=== PATIENT | male | born 1990 | race Two or more races ===

== ENCOUNTER 2017-02-19 20:09 | Inpatient (IN) | payer SELFPAY ==
[~2017-02-19] VITALS: Ht 167.6 cm; Wt 87.3 kg
[2017-02-20] MEDS ORDERED: Alum-Mag Hydrox-Simeth 30 mL Suspension PO PRN (02:30)
[2017-02-20] MEDS ORDERED: Magnesium Hydroxide 10 mL Oral Concentration PO PRN (02:30)
[2017-02-20] MEDS ORDERED: Benzocaine-Menthol Lozenge 2/Pkg PO PRN (02:30)
--- NOTE | 2017-02-20 02:50 | NUR ---
Nursing Admit Note. Patient arrival at 2150 from [facility] via ambulance with hospital security and mother present. Mother was provided access to [place] for a place to stay. Pt BRIGID as danger to self/gravely disabled. History of dropping out of college two years earlier with noted decline in concentration and change in mentation. Reported to respond to internal stimuli, and fixate on turning a light switch on and off for hours and to have periods of very poor hygiene. Pt also noted to disappear for days at a time. Reportedly patient disappeared three weeks earlier from [facility], his place of residence aunts [place]. Pt has travelled across the country and was stopped at the [place] r/t no pass port. Pt was listed as missing from [place] and family was notified. Mother has flown out to take patient home after stabilization for mental health concerns. Pt presents pleasant and cooperative, flat, withdrawn, thought process is slow and confused with possible thought blocking. Pt unable to describe proceeding events leading up to this BRIGID. Pt has never been under psychiatric treatment, denies anxiety, depression, Si/Hi, or A/V hallucinations. Mothers name:Daniel Sundaymello # [phone]. Pt consumed snack and went directly to sleep after intake assessment.
[2017-02-20] MEDS ORDERED: OLANZapine Zydis ODT 5 mg Tablet PO PRN (09:45)
--- NOTE | 2017-02-20 12:43 | HP ---
[address] [address] HISTORY AND PHYSICAL PATIENT: ZOË BASURTO : 1990 MR#: [id number] ADMIT: 02/19/2017 JOB ID: [id number] IDENTIFICATION OF PATIENT: The patient is a 26-year-old male admitted under BRIGID status with transfer from [facility]. The patient reportedly was brought into the emergency department with concerns of grave disability and danger to self. The patient reportedly had a history of recently dropping out of college in the state of [place] and allegedly had a plan of eventually moving to [facility] but lost his passport. He later elected to travel to [place] and evidently was stopped at the border and had significant concern of mentation at that time. CHIEF COMPLAINT: "I don't want to go back to [place]. I am pretty sure my mother brought my uncles to make sure that I do." This per patient report. HISTORY OF PRESENT ILLNESS: As stated above the patient is a 26-year-old male who reportedly was detained through [facility] with concern of grave disability and danger to self. The patient reportedly identified that he evidently moved to the [place] at the age of [age] from [place]. He reports that he eventually graduated from high school in a suburb north of [place] and later attended general education courses through [employer] and [employer]. He indicated that he had no degree emphasis. He reports that he has been working at local [employer] and other [employer] and actually stored up money. He reports that he did move out of the home environment and was living with an aunt for approximately three months and during that process applied for his passport but believes that it was stolen. He reports that he elected to travel to [place] and began anew, stating that he just needed to get some distance between he and his family. He reports that recently he was attempting to cross the border and was stopped due to absence of passport. By report there was concern about the patient's mentation with possible responding to internal stimulus. He denies any evidence of hallucinations, delusions. He reportedly identified that he believes that his passport was stolen but gave no specific cause or reasoning. Other history will be obtained through the family unit. Calls will be placed with mother via the hospice case manager. PAST MEDICAL HISTORY: Substantial for no reported allergies to medications. Medications of current include none. He reportedly identified no ongoing medical care. Other history was reviewed through the ER report at [facility]. I agree with findings. PAST PSYCHIATRIC HISTORY: Essentially none. SOCIAL HISTORY: As noted above. He indicates that he is not a smoker and drinker, and denies any substance use. He indicated that he has one sister who graduated from high school recently and that his mother and father reside in [facility] [place] [facility]. He reports that he does have eventual goals of returning back to [place], indicated that he stayed at the [employer]. He indicates that he does not want to return to the [facility] per family report. FAMILY HISTORY: Unknown. DEVELOPMENTAL HISTORY: As noted above. MENTAL STATUS EXAMINATION: General appearance: The patient was cooperative, polite. He appeared to be sincere in his presentation. There is some concern of anxiety with noted restlessness and some delayed responses. His speech was otherwise of normal tone, frequency, and volume. His mood was anxious. His affect was congruent. His thought process showed no evidence of racing thoughts, flight of ideas, loose or disconnected thinking. His thought content: He denied any evidence of current suicidal, homicidal ideation. He denied any evidence of active hallucinations, delusions. He was alert, oriented to person, place, time, situation. Attention and concentration intact. 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 Insight and judgment are fair. PHYSICAL EXAMINATION: Vital signs of current are unlisted. IMPRESSION: [place] I: 1. 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 2. Rule out psychosis not otherwise specified. [place] II: Deferred. [place] III: None. [place] IV: Stressors are noted for transition of life, difficulty with primary support system. [place] V: Global Assessment of Functioning of current 35. PLAN: 1.Recommendations for no prolongation of hospitalization. I do not support a petition for a 14 day order and expect the patient to be released to his own provision with [facility]. 2.At this time I would not recommend any formal medication but the administration of Vistaril 50 mg q.4 h. p.r.n. and possible usage of Zyprexa Zydis 10 mg q.6 p.r.n. for agitation if noted. MTDD
--- NOTE | 2017-02-20 13:18 | NUR ---
Nursing Note [id number] Behavior S/O: Pt has good appetite. Conversation clear & organized & very superficial. Pt staying in room except for meals & to shower. Pt is quietly sitting on bed. Pleasant & cooperative with cares. Pt has declined to take medications prior to court. A: Pt isolative & has difficulty socializing with others. P: Provide supportive environment. Monitor medications & effects.
[2017-02-20] MEDS ORDERED: OLANZapine Zydis ODT 5 mg Tablet PO SCH (21:00)
--- NOTE | 2017-02-20 22:57 | NUR ---
nursing: Pt has been out in the milieu intermittently with minimal interaction. He is logical and linear but guarded. His mother was here and he made minimal eye contact with her. He is determined to not go home with her. She is determined not to leave without him.She says they have his passport and that she would give it to him and he could go to stay with some of her family in [place]. She describes him prowling the house at night, talking to unseen others. He tries to tell he 'I'm safe. I get around pretty good. 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
--- NOTE | 2017-02-21 05:06 | NUR ---
nursing, nights, 11-7 s/o- has appeared to sleep after 2114 during q 15 minute assessments. a- no apparent distress. p- monitor behavior/emotional state, quality, times and amount of sleep, use and effect of medication. lauren
[2017-02-21 10:07] VITALS: BP 109/72; PULSE 88; RESP 14
--- NOTE | 2017-02-21 13:23 | NUR ---
Nursing Note [id number] Behavior S/O: Pt has good appetite. Pt has agreed to stay in unit voluntarily. Papers signed by pt. Pt stays in room most of the time except for meals. Pleasant & cooperative. Conversation tracking is clear with normal rate & rhythm. Minimal conversation with staff & peers. Poor eye contact. A: Pt is not able to engage in unit activities d/t social phobia. P: Provide supportive environment. Monitor medication & effects.
--- NOTE | 2017-02-21 14:55 | PCM.PNPSY ---
Subjective Date of Service Feb 21, 2017 Subjective I spent 30 minutes both reviewing treatment plan with our clinical team, interviewing the patient and providing supportive/educational psychotherapy. I spent more than 50% of the time counseling the patient. I reviewed the treatment plan with the him and discussed options available including the potential risks, benefits and side effects. Kyle reports a slight improvement in thought organization and mood stability. Staff reports that he has been isolating and participating poorly in one-to-one unit and group activities. He slept 9 hours and denies depression manic or psychotic symptoms review. At this point he is declining offers of medication. Mental Status Exam Vital Signs Kyle is demonstrating poor insight judgment and impulse control. Appearance: Unkept Attitude: Pleasant, Cooperative Behavior: Other (isolative) Affect: Flat (she got requested) Mood: Anxious Thought Process/Associations: Goal Directed, Other (disorganized) Speech Production: Soft Speech Rate: Lags/Latency Speech Articulation: Normal Consciousness: Somnolent Orientation: Person, Place, Date Memory: Grossly Intact Estimate Intellectual Function: Average Attention/Concentration & Cogn: Impaired Insight: Limited Judgement: Limited Mental Health Plan Kyle is a 26-year-old male who was detained through [facility] Emergency Department for grave disability and danger to self. He reports that he moved to the [place] at the age of [age] from [place]. He graduated from high school in a suburb north of [facility]. He has been working at [employer] and other [employer] and actually stored up money. He reports he elected to travel to [place] and begin anew, stating that he just needed to get some distance between he and his family. He reports that recently he was attempting to cross the border and was stopped due to absence of passport. By report there was concern about the patient's mentation with possible responding to internal stimulus. He denies any evidence of hallucinations, delusions. During my evaluation today he was calm and pleasant. He was unable to Relate a coherent history relating to reasons for traveling from [place] to [place]. Although he did not appear to be responding to internal stimuli his thought processing Was impaired with significant poverty of thought and latency. We were able to contact his mother who drove from [place] to come bring him home. Our sample case porter GALILEA is scheduled to meet with his mother tomorrow to discuss Treatment and transitioning back to an outpatient setting. [place] 1. 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 2. Rule out psychosis not otherwise specified. [place] II: Deferred. [place] III: None. [place] IV: Stressors are noted for transition of life, difficulty with primary support system. [place] V: Global Assessment of Functioning of current 35. Medications Treatments Patient is being provided with a high degree of safety through our unit structure and active adult engagement provided by our mental health professionals, mental health technicians, psychiatric nurses and myself. We are focusing on developing improved coping skills and identifying stressors that may have led to current episode. We will attempt to: * Integrate into therapeutic groups, milieu and individual therapy. * Maintain in a closely monitored and structured unit * Provide low-stimulation environment * Obtain collateral data to assist in treatment planning * Assess degree of lability of affect and impulse control * Complete safety plan * Decrease frequency of relapse and need for re-hospitalization * Establish a consistent sleep pattern * Medication effective in stabilization of mood and/or thought process * Reduce the risk of imminent harm to self and/or others by providing a safe environment * Tolerates medication without side effects Patient will be on the following psychiatric medications: None Patient's legal status Voluntary Anticipated number of hospital days to achieve above goals: Unknown Disposition: Patient's mother to come in for a family meeting tomorrow 2016 to gain increased history and to discuss different outpatient treatment options. Los Krishnamurthy MD Feb 21, 2017 14:55 Los Krishnamurthy MD Feb 21, 2017 14:55
--- NOTE | 2017-02-21 18:16 | NUR ---
[facility] Day Shift Pt maintained behavioral control throughout the shift. Pt affect appears flat, artificially bright when engaged by staff and peers. Pt spends most of the shift resting in his room, only entering the dining room to attend meals/snack times. Pt is appropriate with staff and peers when engaged, but is not social. Pt did not engage in any unit activities throughout the shift. Pt takes an abnormally long time to shower. Pt attended all meals and ate approx 100% of all meals.
--- NOTE | 2017-02-21 20:04 | NUR ---
Practice Advisor/Counselor: S: "It's okay to talk to my mom." O: Patient denies S/I and H/I. He also denies auditory and visual hallucinations. Depression is 0/10 and anxiety is 0/10. When asked his mood, patient stated, "I feel good." This show card writer spoke with patient's mother, Smita. This show card writer will have a family meeting tomorrow at 1:00pm with patient and patient's mother. A: Patient is cooperative, pleasant, unkept, flat affect, anxious, limited insight, limited judgment. P: Follow the care plan, coordinate with out-patient providers.
--- NOTE | 2017-02-21 22:10 | NUR ---
[id number]. nurs. S/O: Pt out on unit, some questionably appropriate extensive smiling behaviour, denying any concerns and talking of his plans to stay in [place] for a while working before travelling further [place] mentioned. Pt has family mtg on unit tomorrow. Pt not seeking interaction with others some time out on unit and in grp rm. P:MOSESP
--- NOTE | 2017-02-22 05:33 | NUR ---
nursing, nights, 11-7 s/o- has appeared to sleep after 2244 during q 15 minute assessments. a- no apparent distress. p- monitor behavior/emotional state, quality, times and amount of sleep, use and effect of medication. lauren
[2017-02-22 11:38] VITALS: BP 112/72; PULSE 89; RESP 16
--- NOTE | 2017-02-22 15:06 | NUR ---
Nursing Note [id number] Behavior S/O: Pt out of room for meals. Pt stayed in room most of the day. Pleasant & cooperative with cares. Pt talking & laughing by self with unseen person(s). VS stable. Good appetite. A: Pt appears to be responding to internal stimuli. P: Provide supportive environment. Monitor medications & effects.
--- NOTE | 2017-02-22 21:04 | NUR ---
Pt is pleasant and cooperative with staff. Appropriate with peers but interacts minimally. Pt spent much of the day isolated in his room. Pt visited with mother and CM to discuss discharge planning. Pt participated in evening meeting, stated that he was glad to have talked to the doctor and rated his mood at a 10/10. Throughout the day, pt was visibly and pleasantly responding to internal stimuli. Maintained Q15 checks for safety as directed.
--- NOTE | 2017-02-23 06:25 | NUR ---
Nursing Note Registered Nurse Renal 7pm to 7am Received pt in bed at start of shift. Pt was pleasant and cooperative but vague and evasive when attempting to assess symptoms. Pt denied hearing voices or having disturbance of thought. When asked why he believes he was admitted to the unit he said because he had lost his pass port. Pt refused [facility] stating I have never had to take medication except for over the counter and I am not having any problems that I need medication for. Pt slept through the night. Monitored pt. q 15 minute checks for safety, location and accountability
[2017-02-23 13:30] VITALS: BP 114/73; PULSE 88; RESP 16
--- NOTE | 2017-02-23 17:43 | PCM.PNPSY ---
Subjective Date of Service Feb 22, 2017 Subjective Approximately 30 minutes spent with interview. The patient stated initially that he wished to leave. He had no plan as to where he would go other than to go to [facility] work [place]. 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 He had no response when asked how he would get to [facility] without a passport. 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 He stated his goals were to "settle down, find work, and jail." The patient had not been prescribed medication but as he was exhibiting evidence of a thought disorder he was advised try olanzapine this evening. The patient was agreeable to this plan. Sleep: 7.25 hours plus Appetite: "I tried to eat and walk around." Suicidal and homicidal ideation: Denies Auditory hallucinations: Denies Visual hallucinations: Denies Other Psychotic Symptoms: Poverty of speech, thought disorganization. He denies thought control or thought withdrawal, thought insertion, or racing thoughts. Anxiety: Denies Depression: Denies Mental Status Exam Vital Signs Vital Signs Date Time Temp Pulse Resp B/P Pulse Ox O2 Delivery O2 Flow Rate FiO2 02/22/17 11:38 36.4 89 16 112/72 Appearance: Unkept Attitude: Pleasant, Cooperative Behavior: Other (isolative) Affect: Flat (laughing to self, maniacal expression at times.) Mood: Anxious Thought Process/Associations: Goal Directed, Other (disorganized) Speech Production: Soft Speech Rate: Lags/Latency Speech Articulation: Normal Thought Content: Other (responding to internal stimuli) Danger to Self/Suicidal Ideati: None Danger to Others: None Delusions: Other Hallucinations: Auditory (Denies), Visual (Denies) Consciousness: Alert Orientation: Person, Place, Date Memory: Grossly Intact Estimate Intellectual Function: Average Attention/Concentration & Cogn: Impaired Insight: Limited Judgement: Limited Mental Health Plan Kyle is a 26-year-old male who was detained through [facility] Emergency Department for grave disability and danger to self. He reports that he moved to the [place] at the age of [age] from [place]. He graduated from high school in a suburb north of [facility]. He has been working at [employer] and other [employer] and actually stored up money. He reports he elected to travel to [place] and [facility] anew, stating that he just needed to get some distance between he and his family. He reports that recently he was attempting to cross the border and was stopped due to absence of passport. By report there was concern about the patient's mentation with possible responding to internal stimulus. He denies any evidence of hallucinations, delusions. During interview today he continued to be unable to relate why he planned to go to [place] or [facility]. At times he appeared to be responding to internal stimuli, talking and laughing to himself. He also demonstrates latency and poverty of speech. The patient had a family meeting where his mother expressed concern about his mental state and how he would return to [place] or find housing locally. [place] AXIS I 1. Psychosis not otherwise specified. [place] II: Deferred. [place] III: None. [place] IV: Stressors are noted for transition of life, difficulty with primary support system. [place] V: Global Assessment of Functioning of current 30. Medications Treatments 1. The patient is admitted to the inpatient unit and will be provided a safe and secure environment. 2. The patient is denying current active suicidality and is not in need of a one-to-one at this time. He is agreeing to notify us should he have any acute suicidal or homicidal thoughts. 3. The patient is encouraged to participate with group and milieu activities. 4. The patient will be seen by the treatment team on a daily basis to assess symptoms, side effects and response to treatment. 5. The patient will be started on olanzapine 5 mg nightly for psychosis 6. Anticipated length of stay is 3-5 days. Walt Mcdaniel MD Feb 22, 2017 18:59
--- NOTE | 2017-02-23 17:47 | PCM.PNPSY ---
Subjective Date of Service Feb 23, 2017 Subjective The patient did not take olanzapine last night stating that he did not need a sleeping pill. We discussed that the medication was to assist his mentation and his ability to think more clearly. The patient exhibited significant latency but eventually acknowledged that he had difficulties with the same. When asked about previous behavior of laughing and talking to himself he was unable to clarify whether he is experiencing auditory hallucinations or internal dialogue. Sleep: 7.5 hours Appetite: Good" Suicidal and homicidal ideation: Denies Auditory hallucinations: Denies Visual hallucinations: Denies Other Psychotic Symptoms: Poverty of speech, latency. Anxiety: 0/10 Depression: 0/10 Mental Status Exam Vital Signs Vital Signs Date Time Temp Pulse Resp B/P Pulse Ox O2 Delivery O2 Flow Rate FiO2 02/23/17 13:30 36.4 88 16 114/73 Appearance: Unkept Attitude: Pleasant, Cooperative Behavior: Other (isolative) Affect: Flat (laughing to self, maniacal expression at times.) Mood: Anxious Thought Process/Associations: Goal Directed, Other (disorganized) Speech Production: Soft Speech Rate: Lags/Latency Speech Articulation: Normal Thought Content: Other (responding to internal stimuli) Danger to Self/Suicidal Ideati: None Danger to Others: None Delusions: Other Hallucinations: Auditory (Denies), Visual (Denies) Consciousness: Alert Orientation: Person, Place, Date Memory: Grossly Intact Estimate Intellectual Function: Average Attention/Concentration & Cogn: Impaired Insight: Limited Judgement: Limited Mental Health Plan Kyle is a 26-year-old male who was detained through [facility] Emergency Department for grave disability and danger to self. He reports that he moved to the [place] at the age of [age] from [place]. He graduated from high school in a suburb north [facility]. He has been working at [employer] and other [employer] and actually stored up money. He reports he elected to travel to [place] and [facility] anew, stating that he just needed to get some distance between he and his family. He reports that recently he was attempting to cross the border and was stopped due to absence of passport. By report there was concern about the patient's mentation with possible responding to internal stimulus. He denies any evidence of hallucinations, delusions. During interview today he continued to be unable to relate why he planned to go to [place] or [facility]. At times he appeared on the unit to be continuing to respond to internal stimuli, talking and laughing to himself. He also again demonstrates latency and poverty of speech. The patient stated he would take olanzapine this evening. [place] AXIS I 1. Psychosis not otherwise specified. [place] II: Deferred. [place] III: None. [place] IV: Stressors are noted for transition of life, difficulty with primary support system. [place] V: Global Assessment of Functioning of current 30. Medications Treatments 1. The patient is admitted to the inpatient unit and will be provided a safe and secure environment. 2. The patient is denying current active suicidality and is not in need of a one-to-one at this time. He is agreeing to notify us should he have any acute suicidal or homicidal thoughts. 3. The patient is encouraged to participate with group and milieu activities. 4. The patient will be seen by the treatment team on a daily basis to assess symptoms, side effects and response to treatment. 5. The patient will be started on olanzapine 5 mg nightly for psychosis 6. Consider crisis respite for placement given his level of impairment. 7. Anticipated length of stay is 3-5 days. Walt Mcdaniel MD Feb 23, 2017 17:47
--- NOTE | 2017-02-23 18:27 | NUR ---
Nursing Dayshift: S: "My name is Tree. I am also Serge." O: Patient introducing himself this AM. Has been out in the public areas of the unit today. Interacting with staff and peers. Good appetite at meals. A: Pleasant mood. Bright affect. P: CPOC. Monitor mood and behavior.
--- NOTE | 2017-02-23 19:30 | NUR ---
Observations 0900 - 2130 Pt affect and mood was isolative, guarded, withdrawn, preoccupied and responding to internal stimuli. Pt was pleasant, polite and cooperative when approached. Pt was social with staff and peers when out of his room. Pt attended meals in [facility] and ate 100% of his meals. Pt attended community meeting and set a daily goal. Pt rated his mood 7/10, with 10 being the best. Pt was in his room most of the shift. Pt mom came to visit it appeared to be going well and it ended abruptly and his mom left. Pt took a very long shower in the afternoon. Pt was observed every 15 minutes through the shift as ordered.
--- NOTE | 2017-02-23 23:43 | NUR ---
Nursing Noc Pt had a short visit with his mother this evening before he asked her to leave. His father called but he did not talk on the phone long. He refused a phone call from his sister. Pt quiet on the unit with a pleasant smile, delayed responses. Minimal interaction with peers or staff. He appears internally preoccupied. Took scheduled HS medication without difficulty. Prior to bed he requested his "second medication". He received Zyprexa Zydis 10mg po prn at that time. Medication appears helpful he retired to his room and appears to be sleeping with no noted distress or awakening per protocol. Will continue to monitor mood, behavior, and sleep cycle through the night. Addendum: 02/24/17 at 0518 by SARAH DUBOIS RN Pt asleep by 2245 with no noted distress or awakening per protocol checks. He remains asleep at current time with over 6.5+ hours.
[2017-02-24 15:35] VITALS: BP 118/74; PULSE 69; RESP 15
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
--- NOTE | 2017-02-24 16:03 | NUR ---
Principal Data Architect/Counselor S: "I feel calm. I want to work for 3-4 months before going to [facility]." O: Patient denies any SI or HI, no AVH, no anxiety and no depression. A: Patient has kept to his room for most of the day, and has minimal interaction with staff and other patients. DMHP's have been contacted to re-evaluate patient. P:Follow care plan and coordinate with outpatient providers.
--- NOTE | 2017-02-24 17:35 | NUR ---
Observations [id number] Pt isolative to room much of the day, focused on discharge. Pt did attend all meals, eating 100%. Pt did not spend much time in common areas aside from meal times. Pt continues to appear very internally preoccupied when in common areas. Requested pt to complete safety plan and early warning signs in preparation for discharge- pt appeared to have very little insight as to why he was here, aside from stating "medication makes me sleepy, I don't like how I feel when I wake up after I take medication." He was unable to provide any early warning signs as requested aside from medication side effects. Pt good with ADL's, polite when addressed and cooperative. He was observed every 15 minutes of shift as directed.
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
--- NOTE | 2017-02-25 02:00 | NUR ---
Observations 1900 to 0700 Pt attended and participated in wrap up group. Pt did not eat a snack. Pt was mildly social with peers after wrap up group, but otherwise remained resting in bed. Pt maintained behavioral control and showed no signs of abnormal behavior. Pt appeared asleep at 2130 and has remained asleep. Pt respirations were observed when asleep. Staff completed 15 min close observations as ordered.
--- NOTE | 2017-02-25 05:04 | NUR ---
Nursing Noc Pt has remained quietly pleasant on the unit. Polite upon interaction but mostly isolative. Delayed latent response. Took scheduled medication without difficulty. He was [facility] and [facility] during the evening but had no apparent reaction to his change in status. Poor understanding and insight into his hospitalization. No behavioral problem. He has remained asleep since 2129 with no noted distress or awakening per protocol checks. Adequate sleep with over 7.5 hours.
--- NOTE | 2017-02-25 11:13 | NUR ---
day shift nursing note-Psychosis S/O-Pt. reported he slept well. He asked tag writer what time it was and came out to eat breakfast later than his peers. He does not interact with his peers and prefers to keep to himself in his room rather than watch TV out in the community room. He stated he likes to read magazines but does not come out of his room to get any. He has diverted eye contact when asked if he has any hallucinations. He denies SI, depression or anxiety. He sometimes is observed talking to himself and has no insight as to why he is here. A-Psychosis. P-Monitor for safety per protocol. Assess efficacy of meds to manage target sxs. Encourage engagement with peers.
[2017-02-25 13:00] VITALS: BP 117/77; PULSE 89; RESP 17
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
--- NOTE | 2017-02-25 15:57 | NUR ---
Payroll Associate/Counselor S/O:Patient denies any SI or HI, no AVH, no depression or anxiety. Patient recognizes that [place] may not be a viable option. A:He was in a meeting with his radiology transcriptionist but was friendly and cooperative. He has been in his room for most of the day. P: Follow care plan and coordinate with outpatient providers.
--- NOTE | 2017-02-25 16:00 | NUR ---
Obs Dayshift Pt spends most of his time in bed. Has minimal requests, calm, quiet, and isolating. Pt gets up for meals after peers have eaten and left the dining area. Pt is responding to IS, smiling and talking quietly to unseen others. Pt is polite when approached, calm, and appropriate. Good ADL's, Good meals
--- NOTE | 2017-02-25 22:29 | NUR ---
Nurses Note Evening Patient has been isolative to his room except for dinner and snacks. He has been polite upon approach. He remains medication compliant.Will maintain q 15min. checks for safety and support. Addendum: 02/25/17 at 2232 by KARYN ACEVEDO RN Amended: Links added.
[2017-02-26 11:42] VITALS: BP 115/71; PULSE 74; RESP 16
--- NOTE | 2017-02-26 12:45 | PCM.PNPSY ---
Subjective Date of Service Feb 26, 2017 Subjective The patient reports "I am good.... I feel good." He states that he feels that the olanzapine is helping for him to think more clearly. He denies having any kind of hallucinations or distracting thoughts. When asked about his plans he stated that he may want to go to [place] instead of [place] as it is a larger city with more opportunities since he is homeless. When asked about [place] and his plans to go there he stated that he thought about going to a library to learn about [place]. He had no idea about the process to actually go to a foreign country and work there. He denied that he wanted to return to [place]. He denied medication side effects. The patient could not explain why he preferred to stay in his room but did agree to go to groups today. Sleep: 8 hours Appetite: "Good... 3 meals a day with snacks twice a day" Suicidal and homicidal ideation: Denies Auditory hallucinations: Denies Visual hallucinations: Denies Other Psychotic Symptoms: Latency, poverty of speech Anxiety: "Pretty good" Depression: Denies Mental Status Exam Vital Signs Vital Signs Date Time Temp Pulse Resp B/P Pulse Ox O2 Delivery O2 Flow Rate FiO2 02/26/17 11:42 36.2 74 16 115/71 Appearance: Neat/well groomed Attitude: Pleasant, Cooperative Behavior: Other (isolative) Affect: Blunted Mood: Other ("fine") Thought Process/Associations: Goal Directed, Other (poverty of speech) Speech Production: Soft Speech Rate: Lags/Latency Speech Articulation: Normal Thought Content: Other (internal preoccupation at times) Danger to Self/Suicidal Ideati: None Danger to Others: None Delusions: Other Hallucinations: Auditory (Denies), Visual (Denies) Consciousness: Alert Orientation: Person, Place, Date Memory: Grossly Intact Estimate Intellectual Function: Average Attention/Concentration & Cogn: Impaired Insight: Limited Judgement: Limited Mental Health Plan 6Sermaritza is a 26-year-old male who was detained through [facility] Department for grave disability and danger to self. He reports that he moved to the [place] at the age of [age] from [place]. He graduated from high school in a suburb north of [facility]. He has been working at [employer] and other [employer] and actually stored up money. He reports he elected to travel to [place] and begin anew, stating that he just needed to get some distance between he and his family. He reports that recently he was attempting to cross the border and was stopped due to absence of passport. By report there was concern about the patient's mentation with possible responding to internal stimulus. He denies any evidence of hallucinations, delusions. As noted above, the patient is less fixated on going to [facility] and is actually thinking about his situation more logically and considering larger cities with more services given his homeless status. He is still unwilling to go back to [place] with family. He is still isolating, but is taking medications and cooperating with treatment. [place] AXIS I 1. Psychosis not otherwise specified. [place] II: Deferred. [place] III: None. [place] IV: Stressors are noted for transition of life, difficulty with primary support system. [place] V: Global Assessment of Functioning of current 35. Medications Treatments 1. The patient is admitted to the inpatient unit and will be provided a safe and secure environment. 2. The patient is denying current active suicidality and is not in need of a one-to-one at this time. He is agreeing to notify us should he have any acute suicidal or homicidal thoughts. 3. The patient is encouraged to participate with group and milieu activities. 4. The patient will be seen by the treatment team on a daily basis to assess symptoms, side effects and response to treatment. 5. The patient will be continued on olanzapine 5 mg nightly for psychosis, consider increasing dose if no further improvement. 6. The patient is now on a [address] on Friday. 7. Anticipated length of stay is 10-14 days. Walt Mcdaniel MD Feb 26, 2017 12:45 Walt Mcdaniel MD Feb 26, 2017 12:45
--- NOTE | 2017-02-26 16:46 | NUR ---
Obs Dayshift Pt remained in bed for my shift, getting up only for meals. Little to no engaging, only when approached and superficial w/ staff. Does not engage w/ peers. Ok w/ ADL's, Good/Ok meals
--- NOTE | 2017-02-26 18:04 | NUR ---
Nursing Dayshift: S: "Can I borrow a shaver?" O: Patient shaving this evening. Polite towards staff. Smiles on approach. Eating well at meals. A: Pleasant with staff. Isolative. P: CPOC. Monitor mood and behavior.
--- NOTE | 2017-02-26 19:16 | NUR ---
Sas Bi Developer/Counselor: S: "I'm doing pretty good." O: Patient slept 8 hours last night per staff. Patient denies S/I and H/I. He also denies auditory and visual hallucinations. He denies depression and anxiety is "pretty good"/10. When asked his mood, patient stated, "Fine." A: Patient is cooperative, blunted affect, internally preoccupied, limited insight, limited judgment. P: Follow the care plan, coordinate with out-patient providers.
--- NOTE | 2017-02-26 20:54 | NUR ---
Nursing Noc Pt isolates to room except out for snack. Pleasant and polite upon approach. No behavioral outburst. Took HS medication without difficulty. Minimal interaction with peers or staff. Will continue to monitor and provide support as needed.
--- NOTE | 2017-02-27 05:00 | NUR ---
Adequate sleep through the night with no noted distress or awakening per protocol checks. Total sleep over 8 hours.
[2017-02-27 09:10] VITALS: BP 125/66; PULSE 104; RESP 16
--- NOTE | 2017-02-27 15:16 | NUR ---
NURSE NOTE DAY Mood:"I'm fine." Denies depression, anxiety. Affect: Restricted. Behavior:Pt isolated in room most of shift. Thought Content/Process: "I want to move to [facility] to settle down." Denies SAILAJA, VH. Denies GERARDO GOEL. PRN/NURS Notes: Per mother, pt was drinking excessive amounts of water prior to admit.
--- NOTE | 2017-02-27 16:01 | NUR ---
Records Technician/Counselor: S: "I woke up on time, ate breakfast on time, and did my laundry." O: Patient slept 6.50 hours last night per staff. Patient denies S/I and H/I. He also denies auditory and visual hallucinations. He denies depression and anxiety. When asked his mood, patient stated, "Good." A: Patient is cooperative, blunted affect, isolative, limited insight, limited judgment. P: Follow the care plan, coordinate with out-patient providers.
--- NOTE | 2017-02-27 17:15 | PCM.PNPSY ---
Subjective Date of Service Feb 27, 2017 Subjective Patient reports that he was "up on time, at breakfast on time, did laundry." Declines a visit from mother as "not really much to talk about." Patient agreeable to LRO with placement in [place] Sleep: Getting good sleep Appetite: good Suicidal and homicidal ideation: denies Auditory hallucinations: denies Visual hallucinations: denies Other Psychotic Symptoms: latency improved Anxiety: 0/10 Depression: 0/10 Mental Status Exam Vital Signs Vital Signs Date Time Temp Pulse Resp B/P Pulse Ox O2 Delivery O2 Flow Rate FiO2 02/27/17 09:10 36.4 104 16 125/66 Appearance: Neat/well groomed Attitude: Pleasant, Cooperative Behavior: Other (isolative) Affect: Blunted Mood: Other ("fine") Thought Process/Associations: Goal Directed, Other (poverty of speech) Speech Production: Soft Speech Rate: Lags/Latency Speech Articulation: Normal Thought Content: Other (internal preoccupation at times) Danger to Self/Suicidal Ideati: None Danger to Others: None Delusions: Other Hallucinations: Auditory (Denies), Visual (Denies) Consciousness: Alert Orientation: Person, Place, Date Memory: Grossly Intact Estimate Intellectual Function: Average Attention/Concentration & Cogn: Impaired Insight: Limited Judgement: Limited Mental Health Plan 6Kyle is a 26-year-old male who was detained through [facility] Emergency Department for grave disability and danger to self. He reports that he moved to the [place] at the age of [age] from [place]. He graduated from high school in a [place] north of [facility]. He has been working at [employer] and other [employer] and actually stored up money. He reports he elected to travel to [place] and begin anew, stating that he just needed to get some distance between he and his family. He reports that recently he was attempting to cross the border and was stopped due to absence of passport. By report there was concern about the patient's mentation with possible responding to internal stimulus. He denies any evidence of hallucinations, delusions. The patient is open to treatment and a less restrictive order. He is still unwilling to go back to [place] with family. He is still isolating, but is taking medications and cooperating with treatment. [place] AXIS I 1. Psychosis not otherwise specified. [place] II: Deferred. [place] III: None. [place] IV: Stressors are noted for transition of life, difficulty with primary support system. [place] V: Global Assessment of Functioning of current 35. Medications Treatments 1. The patient is admitted to the inpatient unit and will be provided a safe and secure environment. 2. The patient is denying current active suicidality and is not in need of a one-to-one at this time. He is agreeing to notify us should he have any acute suicidal or homicidal thoughts. 3. The patient is encouraged to participate with group and milieu activities. 4. The patient will be seen by the treatment team on a daily basis to assess symptoms, side effects and response to treatment. 5. The patient will be continued on olanzapine 5 mg nightly for psychosis, consider increasing dose if no further improvement. 6. The patient is now on a 72hr hold with court on Friday. 7. Anticipated length of stay is 10-14 days. Walt Mcdaniel MD Feb 27, 2017 17:15 Walt Mcdaneil MD Feb 27, 2017 17:15
--- NOTE | 2017-02-27 19:37 | NUR ---
Observations 1300 - 1930 Pt affect and mood remains the same as previous shifts. isolative, guarded, withdrawn, preoccupied and responding to internal stimuli. Pt was pleasant, polite and cooperative when approached. Pt was social with staff and some peers when out of his room. Pt attended meals in D.R. and ate 100% of his meals. Pt was in his room most of the shift. Pt was observed every 15 minutes through the shift as ordered.
--- NOTE | 2017-02-27 22:24 | NUR ---
Nurses Note Evening Patient remains isolative to his room except for meals and medication. He continues to speak about leaving the country once discharged looking for a peaceful country. He remains pleasant and polite without overt signs of inner stimuli. Will maintain q 15 min. checks for safety and support. Addendum: 02/27/17 at 2229 by KARYN ACEVEDO RN Amended: Links added.
--- NOTE | 2017-02-28 00:40 | NUR ---
nursing, nights, 11-7 s/o- has appeared to sleep after 2129 during q 15 minute assessments. a- no apparent distress. p- monitor behavior/emotional state, quality, times and amount of sleep, use and effect of medication
[2017-02-28 10:45] LABS: BASOPHILS % (AUTO) 0.2 % (0-3); Mean Corpuscular Hemoglobin 27.6 pg (27.0-35.0); Mean Corpuscular Volume 84.4 fL (81-100); NEUTROPHILS % (AUTO) 49.6 % (40-74); Platelet Count 241 bil/L (150-400)
--- NOTE | 2017-02-28 14:03 | NUR ---
NURSE NOTE DAY Mood: "I'm fine." Denies depression, anxiety. Affect: Restricted. Thought Process/Content: "I'm feeling much better than when I got here." Denies AH, VH. Denies SI, HI. Behavior: Pt went to court this morning. Up for meals. Isolated in room much of shift. Pleasant and cooperative with staff.
--- NOTE | 2017-02-28 14:29 | NUR ---
Cranberry Sorter/Counselor: S: "I had my medication last night and I slept and woke up on time and had breakfast." O: Patient slept 8.5 hours last night per staff. Patient denies S/I and H/I. He also denies auditory and visual hallucinations. He denies depression and anxiety. When asked his mood, patient stated, "Good." This sign writer letterer or painter called [facility] Triage to see if they had an available bed for the patient. There are not any available beds at this time. The Triage b2b sales representative suggested a call back each morning to check for bed availability. This sign writer letterer or painter spoke with [facility] and scheduled an out-patient appointment for March 04 at 8:30am. Patient's plans upon discharge are: Stay in [place] for a little while; get a passport; get a job; go to the [place] and learn [place]; and finally move to [facility]. A: Patient is cooperative, blunted affect, isolative, limited insight, limited judgment. P: Follow the care plan, coordinate with out-patient providers. Addendum: 02/28/17 at 2118 by FLOR SINGH [facility] Upon discharge, showcase trimmer will attempt to get patient a bed at [place] [facility], . A Release of Information is in patient's chart. business support manager will request "A special needs admission bed."
--- NOTE | 2017-02-28 15:14 | PCM.PNPSY ---
Subjective Date of Service Feb 28, 2017 Subjective The patient reported that "court went good." He continues to report that he does not wish to return to [place] with his mother. His mother has expressed concern about being able to care for himself in the community. He states that the medication is helping his thinking and he was able to wake up early and take a shower on time without difficulty. He plans to get his social security card and his passport. 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 We discussed with the patient that he would like to be a good candidate for crisis respite that there are no beds. We also discussed referring the patient to a special needs admission bed he was agreeable. The patient declines further titration of medication but agrees to take it on discharge. Sleep: 8.5 hours Appetite: Good Suicidal and homicidal ideation: Denies Auditory hallucinations: Denies Visual hallucinations: Denies Other Psychotic Symptoms: Patient is noted being the day area responding to internal stimuli. Anxiety: 0/10 Depression: 0/10 Mental Status Exam Appearance: Neat/well groomed Attitude: Pleasant, Cooperative Behavior: Other (isolative) Affect: Restricted (but smiling more with better eye contact) Mood: Euthymic Thought Process/Associations: Goal Directed, Other (poverty of speech) Speech Production: Soft Speech Rate: Normal, Lags/Latency (at times) Speech Articulation: Normal Thought Content: Other (internal preoccupation at times) Danger to Self/Suicidal Ideati: None Danger to Others: None Delusions: Other Hallucinations: Auditory (Denies), Visual (Denies) Consciousness: Alert Orientation: Person, Place, Date, Situation Memory: Grossly Intact Estimate Intellectual Function: Average Basis for IQ estimate: Word use/vocabulary, Educational history Attention/Concentration & Cogn: Impaired Insight: Limited Judgement: Limited Result Diagram: 02/28/17 1004 02/28/17 1004 Mental Health Plan Clemente is a 26-year-old male who was detained through [facility] Emergency Department for grave disability and danger to self. He reports that he [place] the [place] at the age of [age] from [place]. He graduated from high school in a suburb north of [facility]. He has been working at [employer] and other [employer] and actually stored up money. He reports he elected to travel to [place] [facility], stating that he just needed to get some distance between he and his family. He reports that recently he was attempting to cross the border and was stopped due to absence of passport. By report there was concern about the patient's mentation with possible responding to internal stimulus. He denies any evidence of hallucinations, delusions. The patient agreed to a less restrictive order today with 5 additional days to allow time for crisis respite referral. The patient also needs referral to a special needs admission bed at [facility]. He is still unwilling to go back to [place] with family. He is still isolating, but is taking medications and cooperating with treatment. He is unwilling to have further titration of olanzapine. [place] AXIS I 1. 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 [place] III: None. [place] IV: Stressors are noted for transition of life, difficulty with primary support system. [place] V: Global Assessment of Functioning of current 40. Medications Treatments 1. The patient is admitted to the inpatient unit and will be provided a safe and secure environment. 2. The patient is denying current active suicidality and is not in need of a one-to-one at this time. He is agreeing to notify us should he have any acute suicidal or homicidal thoughts. 3. The patient is encouraged to participate with group and milieu activities. 4. The patient will be seen by the treatment team on a daily basis to assess symptoms, side effects and response to treatment. 5. The patient will be continued on olanzapine 5 mg nightly for psychosis, consider increasing dose if no further improvement patient currently declining. 6. The patient is on a 90 day less restrictive order with inpatient time until 03/04/2017. 7. The patient has been referred to crisis respite but there are currently no beds available. They will also be notified that he would benefit from a special needs admission bed at [facility]. 8. Given the patient's history of disorganization, the patient would benefit from a map of the [place] area in order to get from the bus to crisis triage and [facility]. 9. The patient's outpatient follow-up is scheduled for Friday at 8:30 AM on at [facility] in [place]. The patient may present Friday through Friday however. 10. Anticipated length of stay is 4 days. Walt Mcdaniel MD Feb 28, 2017 15:14
[2017-02-28 17:41] VITALS: BP 121/68; PULSE 90; RESP 16
--- NOTE | 2017-02-28 18:45 | NUR ---
[facility] Day Shift Pt maintained behavioral control throughout the shift. Pt affect appears flat, artificially bright when engaged by staff and peers. Pt spends most of the shift resting in his room, only entering the dining room to attend meals/snack times. Pt is appropriate with staff and peers when engaged, but is not social. Pt did not engage in any unit activities throughout the shift. Pt continues to take an abnormally long time to shower. Pt attended all meals and ate approx 100% of all meals.
--- NOTE | 2017-02-28 22:06 | NUR ---
Observations 1900 to 0700 Pt ate a snack. Pt is pleasant and cooperative with staff. Pt spends free time resting in bed. Pt maintained behavioral control and showed no signs of abnormal behavior. Pt appeared asleep at 2200. Pt respirations were observed when asleep. Staff completed 15 min close observations as ordered.
--- NOTE | 2017-03-01 03:08 | NUR ---
Nursing Noc Pt noted to be out in common area this evening taking medications and snacks. Refused to see his mother this shift. Presents soft spoken and denies hallucination or anxiety. Noted to be asleep at 2200 and remained asleep throughout the night. q15 minute safety checks as prescribed BHCP, monitoring mood, behavior, emotional state and sleep times.
[2017-03-01 11:34] VITALS: BP 107/69; PULSE 98; RESP 20
--- NOTE | 2017-03-01 13:19 | PCM.PNPSY ---
Subjective Date of Service Mar 01, 2017 Subjective I spent 30 minutes both reviewing treatment plan with our clinical team, interviewing the patient and providing supportive/educational psychotherapy. I spent more than 50% of the time counseling the patient. I reviewed the treatment plan with the him and discussed options available including the potential risks, benefits and side effects. Kyle reports an improvement in thought organization and mood stability. Staff reports that he has been isolating and participating poorly in one-to-one unit and group activities. He slept 8 hours and denies depression or manic or psychotic symptoms review. He denies medication side effects. He was able to identify his medications and what they were used to treat. Mental Status Exam Vital Signs Vital Signs Date Time Temp Pulse Resp B/P Pulse Ox O2 Delivery O2 Flow Rate FiO2 03/01/17 11:34 36.5 98 20 107/69 Appearance: Neat/well groomed Attitude: Pleasant, Cooperative Behavior: Other (isolative) Affect: Restricted (but smiling more with better eye contact) Mood: Euthymic Thought Process/Associations: Goal Directed, Other (poverty of speech) Speech Production: Soft Speech Rate: Normal, Lags/Latency (at times) Speech Articulation: Normal Thought Content: Other (internal preoccupation at times) Danger to Self/Suicidal Ideati: None Danger to Others: None Delusions: Other Hallucinations: Auditory (Denies) Consciousness: Alert Orientation: Person, Place, Date, Situation Memory: Grossly Intact Estimate Intellectual Function: Average Basis for IQ estimate: Word use/vocabulary, Educational history Attention/Concentration & Cogn: Impaired Insight: Limited Judgement: Limited Result Diagram: 02/28/17 1004 02/28/17 1004 Mental Health Plan Kyle is a 26-year-old male who was detained through [facility] Emergency Department for grave disability and danger to self. He reports that he [place] the [place] at the age of [age] from [place]. He graduated from high school in a suburb north of [facility]. He has been working at [employer] and other [employer] and actually stored up money. He reports he elected to travel to [place] and begin anew, stating that he just needed to get some distance between he and his family. He reports that recently he was attempting to cross the border and was stopped due to absence of passport. By report there was concern about the patient's mentation with possible responding to internal stimulus. He denies any evidence of hallucinations, delusions. During my evaluation today he was calm and pleasant. He was again unable to Relate a coherent history relating to reasons for traveling from [place] to [place]. Although he did not appear to be responding to internal stimuli his thought processing Was impaired with significant poverty of thought and latency. Our block and case maker GALILEA is working with family about transitioning back to an outpatient setting. [place] AXIS I 1. 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 [place] III: None. [place] IV: Stressors are noted for transition of life, difficulty with primary support system. [place] V: Global Assessment of Functioning of current 40. Medications Treatments Patient is being provided with a high degree of safety through our unit structure and active adult engagement provided by our mental health professionals, mental health technicians, psychiatric nurses and myself. We are focusing on developing improved coping skills and identifying stressors that may have led to current episode. We will attempt to: * Integrate into therapeutic groups, milieu and individual therapy. * Maintain in a closely monitored and structured unit * Provide low-stimulation environment * Obtain collateral data to assist in treatment planning * Assess degree of lability of affect and impulse control * Complete safety plan * Decrease frequency of relapse and need for re-hospitalization * Denies thoughts of harm to self and/or others * Establish a consistent sleep pattern * Medication effective in stabilization of mood and/or thought process * Reduce the risk of imminent harm to self and/or others by providing a safe environment * Tolerates medication without side effects Patient will be on the following psychiatric medications: olanzapine 5 mg night Education: Educate patient about recreational drug use as an etiology Educate about metabolic etiologies related to obesity Patient's legal status Patient is on a 90 LR O with 7 days additional involuntary treatment in the hospital. Patient will be given the opportunity to talk to her auricular detoxification specialist and the varnish maker helper Anticipated number of hospital days to achieve above goals: 3 Disposition: The patient has been referred to crisis respite but there are currently no beds available. They will also be notified that he would benefit from a special needs admission bed at [facility] The patient's outpatient follow-up is scheduled for Friday at 8:30 AM on 2016 at [facility] in [place]. The patient may present Friday through Friday however. Los Krishnamurthy MD Mar 01, 2017 13:19
--- NOTE | 2017-03-01 13:35 | NUR ---
Nursing Note [id number] Behavior S/O: Pt out of room for meals, but keeps to himself most of the time. Pt talking & smiling to unseen persons. Pt has piercing stare. Pleasant & cooperative. Took medications as ordered. Good appetite. A: Pt appears to be responding to internal stimuli. P: Provide supportive environment. Monitor medications & effects.
--- NOTE | 2017-03-01 21:04 | NUR ---
OBSERVATIONS 0900 TO 2130 Pt pleasant and cooperative with staff. Pt spent some of the day in common areas but did not socialize with peers. Pt was observed laughing and otherwise responding to internal stimuli several times throughout the day. Pt showered, changed into fresh scrubs, and changed his sheets. Pt is very particular and tidy, folding all dirty clothes/linens before handing them over to staff. Maintained Q15 checks for safety as directed.
--- NOTE | 2017-03-01 22:55 | NUR ---
NURSING NOTE [id number] Mood: "fine, thank you" Affect: flat, calm, pleasant upon approach Behavior: pt. mostly isolating this shift but did come out for meals. Pt. was med compliant at HS. Pt. not seen interacting much w/peers. Thought processes: pt. denies AH/VH/SI/depression. Staff did hear pt. speaking to unseen others in his room this evening.
--- NOTE | 2017-03-02 01:13 | NUR ---
Observations 1900 to 0700 Pt ate a snack. Pt is pleasant and cooperative and continues much like previous shifts to isolate in room in bed. Pt minimally interacts with staff and peers. Pt maintained behavioral control. Pt appeared asleep 2230 and has remained asleep. Pt respirations were observed when asleep. Staff completed 15 min close observations as ordered.
--- NOTE | 2017-03-02 05:40 | NUR ---
Sleep Pt was asleep at beginning of shift at 2300 and remained so until the end of shift. Q 15min safety checks in place.
--- NOTE | 2017-03-02 12:39 | NUR ---
Nursing Note [id number] Behavior S/O: Pt out of room only for meals. Good appetite. Pleasant & cooperative with peers & staff. A: No s/sx internal stimulation noted by staff. P: Provide supportive environment. Monitor medications & effects.
--- NOTE | 2017-03-02 14:23 | PCM.PNPSY ---
Subjective Date of Service Mar 02, 2017 Subjective I spent 30 minutes both reviewing treatment plan with our clinical team, interviewing the patient and providing supportive/educational psychotherapy. I spent more than 50% of the time counseling the patient. I reviewed the treatment plan with the him and discussed options available including the potential risks, benefits and side effects. Kyle reports an improvement in thought organization and mood stability. Staff reports that he has been isolating and participating poorly in one-to-one unit and group activities. He slept 8 hours and denies depression or manic or psychotic symptoms review. Both staff and I have felt that Kyle is very pleasant and cooperative but that he has an underlying psychosis that he is reluctant to share. He denies medication side effects. He was able to identify his medications and what they were used to treat. Mental Status Exam Appearance: Neat/well groomed Attitude: Pleasant, Cooperative Behavior: Other (isolative) Affect: Restricted (but smiling more with better eye contact) Mood: Euthymic Thought Process/Associations: Goal Directed, Other (poverty of speech) Speech Production: Soft Speech Rate: Normal, Lags/Latency (at times) Speech Articulation: Normal Thought Content: Other (internal preoccupation at times) Danger to Self/Suicidal Ideati: None Danger to Others: None Delusions: Other Hallucinations: Auditory (Denies) Consciousness: Alert Orientation: Person, Place, Date, Situation Memory: Grossly Intact Estimate Intellectual Function: Average Basis for IQ estimate: Word use/vocabulary, Educational history Attention/Concentration & Cogn: Impaired Insight: Limited Judgement: Limited Result Diagram: 02/28/17 1004 02/28/17 1004 Mental Health Plan Kyle is a 26-year-old male who was detained through [facility] for grave disability and danger to self. He reports that he moved to the [place] at the age of [age] from [place]. He graduated from high school in a suburb north of [facility]. He has been working at [employer] and other [employer] and actually stored up money. He reports he elected to travel to [place] and begin anew, stating that he just needed to get some distance between he and his family. He reports that recently he was attempting to cross the border and was stopped due to absence of passport. By report there was concern about the patient's mentation with possible responding to internal stimulus. He denies any evidence of hallucinations, delusions. During my evaluation today he was again calm and pleasant. He was again unable to Relate a coherent history relating to reasons for traveling from [place] to [place]. Although he did not appear to be responding to internal stimuli his thought processing Was impaired with significant poverty of thought and latency. Our pillowcase turner GALILEA is working with family about transitioning back to an outpatient setting. [place] AXIS I 1. 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 [place] III: None. [place] IV: Stressors are noted for transition of life, difficulty with primary support system. [place] V: Global Assessment of Functioning of current 35 Medications Treatments Patient is being provided with a high degree of safety through our unit structure and active adult engagement provided by our mental health professionals, mental health technicians, psychiatric nurses and myself. We are focusing on developing improved coping skills and identifying stressors that may have led to current episode. We will attempt to: * Integrate into therapeutic groups, milieu and individual therapy. * Maintain in a closely monitored and structured unit * Provide low-stimulation environment * Obtain collateral data to assist in treatment planning * Assess degree of lability of affect and impulse control * Complete safety plan * Decrease frequency of relapse and need for re-hospitalization * Denies thoughts of harm to self and/or others * Establish a consistent sleep pattern * Medication effective in stabilization of mood and/or thought process * Reduce the risk of imminent harm to self and/or others by providing a safe environment * Tolerates medication without side effects Patient will be on the following psychiatric medications: Increase Olanzapine to 10 mg night Education: Educate patient about recreational drug use as an etiology Educate about metabolic etiologies related to obesity Patient's legal status Patient is on a 90 LR O with 7 days additional involuntary treatment in the hospital. Patient will be given the opportunity to talk to her turner in and the aix system administrator Anticipated number of hospital days to achieve above goals: 3 Disposition: The patient has been referred to crisis respite but there are currently no beds available. They will also be notified that he would benefit from a special needs admission bed at [facility] The patient's outpatient follow-up is scheduled for Friday at 8:30 AM on 2016 at [facility] in [place]. The patient may present Friday through Friday however. Los Krishnamurthy MD Mar 02, 2017 14:23
--- NOTE | 2017-03-02 18:14 | NUR ---
[facility] Day Shift Pt maintained behavioral control throughout the shift. Pt affect appears flat, artificially bright when engaged by staff and peers. Pt spends most of the shift resting in his room, only entering the dining room to attend meals/snack times. Pt is appropriate with staff and peers when engaged, but is not social. Pt did not engage in any unit activities throughout the shift. Pt continues to take an abnormally long time to shower. Pt attended breakfast and lunch and ate approx 100% of both meals. Pt has not attended dinner at this time.
--- NOTE | 2017-03-02 23:03 | NUR ---
NURSING NOTE [id number] Mood: "good" *smiles* Affect: reserved, brightens in conversation Behavior: pt. continues to isolate to room, out for meals and snacks, med compliant. Thought processes: denies AH/VH/SI/HI. Unclear if pt. is responding to internal stimuli this shift. This documentation writer did not hear or see him speaking to himself this shift as he was doing yesterday but pt. was seen laughing and smiling to himself several times today.
--- NOTE | 2017-03-03 06:12 | NUR ---
Nursing Note Parts Clerk Plant Maintenance 11pm-7am Patient asleep at start of shift. He remains asleep at current time with 8+ hours. Pt monitored q 15 minutes for safety, location and accountability.
--- NOTE | 2017-03-03 14:23 | PCM.PNPSY ---
Subjective Date of Service Mar 03, 2017 Subjective I spent 30 minutes both reviewing treatment plan with our clinical team, interviewing the patient and providing supportive/educational psychotherapy. I spent more than 50% of the time counseling the patient. I reviewed the treatment plan with the him and discussed options available including the potential risks, benefits and side effects. Kyle reports normalization in thought organization and mood stability. Staff reports that he has been isolating and participating poorly in one-to-one unit and group activities. He slept 8 hours and denies depression or manic or psychotic symptoms review. Both staff and I have felt that Kyle is very pleasant and cooperative but that he has an underlying psychosis that he is reluctant to share. He denies medication side effects. Current Medications Current Medications Olanzapine 10 mg HS PO Last administered on 03/02/17t 20:19; Admin Dose 10 MG; Start 03/02/17 at 21:00 Mental Status Exam Appearance: Neat/well groomed Attitude: Pleasant, Cooperative Behavior: Other (isolative) Affect: Restricted (but smiling more with better eye contact) Mood: Euthymic Thought Process/Associations: Logical/Sequential, Goal Directed Speech Production: Soft Speech Rate: Normal, Lags/Latency (at times) Speech Articulation: Normal Thought Content: Other (internal preoccupation at times) Danger to Self/Suicidal Ideati: None Danger to Others: None Delusions: Other Hallucinations: Auditory (Denies), Visual (Denies), Tactile (Denies) Consciousness: Alert Orientation: Person, Place, Date, Situation Memory: Grossly Intact Estimate Intellectual Function: Average Basis for IQ estimate: Word use/vocabulary, Educational history Attention/Concentration & Cogn: Impaired Insight: Limited Judgement: Limited Result Diagram: 02/28/17 1004 02/28/17 1004 Mental Health Plan Kyle is a 26-year-old male who was detained through [facility] for grave disability and danger to self. He reports that he moved to the [place] at the age of [age] from [place]. He graduated from high school in a suburb north of [facility]. He has been working at [employer] and other [employer] and actually stored up money. He reports he elected to travel to [place] and begin anew, stating that he just needed to get some distance between he and his family. He reports that recently he was attempting to cross the border and was stopped due to absence of passport. By report there was concern about the patient's mentation with possible responding to internal stimulus. He denies any evidence of hallucinations, delusions. During my evaluation today he was again calm and pleasant. He was again unable to Relate a coherent history relating to reasons for traveling from [place] to [place]. Although he did not appear to be responding to internal stimuli his thought processing Was impaired with significant poverty of thought and latency. Our hospice case manager GALILEA is working with family about transitioning back to an outpatient setting. His condition here is stabilizing and we are attempting to get him a supported alf care In [place] as he is refusing to return to family in [place]. [place] AXIS I 1. 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 [place] III: None. [place] IV: Stressors are noted for transition of life, difficulty with primary support system. [place] V: Global Assessment of Functioning of current 40 Medications Treatments Patient is being provided with a high degree of safety through our unit structure and active adult engagement provided by our mental health professionals, mental health technicians, psychiatric nurses and myself. We are focusing on developing improved coping skills and identifying stressors that may have led to current episode. We will attempt to: * Integrate into therapeutic groups, milieu and individual therapy. * Maintain in a closely monitored and structured unit * Provide low-stimulation environment * Obtain collateral data to assist in treatment planning * Assess degree of lability of affect and impulse control * Complete safety plan * Decrease frequency of relapse and need for re-hospitalization * Denies thoughts of harm to self and/or others * Establish a consistent sleep pattern * Medication effective in stabilization of mood and/or thought process * Reduce the risk of imminent harm to self and/or others by providing a safe environment * Tolerates medication without side effects Patient will be on the following psychiatric medications: Increase Olanzapine to 10 mg night Education: Educate patient about recreational drug use as an etiology Educate about metabolic etiologies related to obesity Patient's legal status Patient is on a 90 LR O with 7 days additional involuntary treatment in the hospital. This hold runs out on Friday, 2016 Anticipated number of hospital days to achieve above goals: 1 Disposition: The patient has been referred to crisis respite but there are currently no beds available. They will also be notified that he would benefit from a special needs admission bed at [facility] The patient's outpatient follow-up is scheduled for Friday at 8:30 AM on 2016 at [facility] in [place]. The patient may present Friday through Friday however. Los Krishnamurthy MD Mar 03, 2017 14:23
--- NOTE | 2017-03-03 15:02 | NUR ---
Nursing 0700 to 1500 s/O: This patient has been in his room the entire shift except for meals. He lies on bed. Smiles readily on approach. He acknowledged that he will be discharged to [facility] today or tomorrow and knew that bus transportation was being arranged. (Plan is to discharge tomorrow). Pt. denied suicidality, depression and anxiety. Refused a call from his mother. Manas typewriter tester he was "sleepy and I see my mother when she comes to visit." A: Anticipating discharge. P: Support pt in discharge planning. Addendum: 03/03/17 at 1506 by MARIAJOSE HOWARD RN Amended: Links added.
--- NOTE | 2017-03-03 15:32 | NUR ---
Counseling Director/Counselor S:" I'm going good." O: Patient denies any SI or HI, no AVH, no anxiety or depression. A: Patient is looking forward to discharge, and will [facility] [place]. He plans to find a job to save money to eventually move to [facility]. Patient stayed in his room most of the day but was pleasant and cooperative. P:Follow care plan and coordinate with outpatient providers.
--- NOTE | 2017-03-03 20:33 | NUR ---
Obs Dayshift Pt is polite, calm, quiet and keeps to himself. Pt declined to talk to mom today on the phone. Pt is reasonable w/ requests, isolates to his room. Little to no engaging w/ staff or peers. Not spending time in the milieu other than meal times, eats quickly and goes back to his room. Good ADL's, Good meals
--- NOTE | 2017-03-03 22:18 | NUR ---
NURSING NOTE [id number] Mood: "fine" Affect: calm, pleasant, polite Behavior: isolating to room all shift except for meals. He did not present independently for HS meds. After he took his scheduled Zyprexa 10 mg he came out to ask this jingle writer if it's "healthy" to "take so much Zyprexa" -- pt. given med education and reassurance and agreed to continue taking his medications as prescribed upon discharge. Thought processes: denies all issues; no SI/HI/AH/VH. Pt. expressed motivation for discharge tomorrow.
--- NOTE | 2017-03-04 05:50 | NUR ---
Nursing Note Swatch Folder 11pm to 7am Pt asleep at start of shift and remained asleep for the duration of shift without interruption. Monitored pt. with 15 minute face checks for safety, location and accountability
[2017-03-04] MEDS ORDERED: OLAN10TA19 PO (09:19)
--- NOTE | 2017-03-04 09:22 | PCM.DIMED ---
Discharge Instructions Date of Service Mar 04, 2017 Dates of Hospitalization Feb 19, 2017 at 22:10 Discharge Diagnosis Discharge Diagnosis AXIS I 1. 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 [place] III: None. [place] IV: Stressors are noted for transition of life, difficulty with primary support system. [place] V: Global Assessment of Functioning of current 45 Medication Instructions Additional med instructions I Strongly encouraged patient to follow up with outpatient care: 1-Recommended patient takes medication as prescribed and not alter this unless under the direct care of a provider. 2-Recommend client refrain from recreational drugs and alcohol while taking psychiatric medications. 3--Recommend patient attempt to find a therapist or group to deal with impulse control and interpersonal relationship conflicts Diet Discharge Diet: No restrictions Activity Discharge Activity: No restrictions Call your provider Call your provider for: Fever or Chills Patient Instructions Follow-up plan The patient has been referred to crisis respite but there are currently no beds available. He will be transferred to [facility] The patient's outpatient follow-up is at [facility] in [place]. The patient may present Friday through Friday Follow-up with PCP in: 2 weeks Los Krishnamurthy MD Mar 04, 2017 09:22
--- NOTE | 2017-03-04 09:56 | DIS ---
[address] [address] DISCHARGE SUMMARY PATIENT: ZOË BASURTO : 1990 MR#: [id number] ADMIT: 02/19/2017 JOB ID: [id number] DIS: 03/04/2017 IDENTIFICATION: The patient is a 26-year-old, Stateless [place] male. He had been living in [place], [place], with family and impulsively drove to [place] in an attempt to get to [place]. REASON FOR ADMISSION: Client responding to internal stimuli and having multiple symptoms of psychosis. SUMMARY OF PRESENT ILLNESS: Client is a poor historian but apparently had a manic episode in [place]. He has delusional belief that living in [place] or [facility] will heal him. He has very poor planning, no money and very poor work skills. His mother followed him to [facility] and was trying to support him to come back home but he has continually refused. His mother eventually returned back to [place] as the client refused to work with her on the inpatient unit to develop a reasonable outpatient treatment program. Here on our unit, he has been pleasant and calm, but is nonparticipatory in one-to-one unit and group therapies. He is taking olanzapine, and appears to have had a marked decrease in psychotic symptoms as evidenced by not appearing to respond to internal stimuli and now denying hallucinations. Although his psychosis is decreased, his insight and judgment remain poor. He did detail a reasonable safety plan and treatment plan of moving to [place], getting involved at the [employer], trying to get a job and going to [facility] for outpatient followup. Although I believe he will need to return to my [place] to a have supportive of his family, I do not believe he is in imminent danger with this plan. MENTAL STATUS EXAM: Client neatly dressed, calm, pleasant, good eye contact. Mood euthymic. Affect congruent. Thought process, client is able to relate a coherent history. His thought process is somewhat concrete and restrictive. Thought content, themes of travel to [place] and [facility]. Also themes of going to his follow up appointment in [place] and trying to establish a job in [place]. Alert and oriented to person, place, and date. Insight and judgment poor. Impulse control highly contained. Reality testing intact. Competence to handle current stressors appears to be at baseline. DISCHARGE DIAGNOSIS: AXIS I: Psychosis, not otherwise specified, rule out schizophrenia, disorganized type. Rule out bipolar mood disorder with psychosis. AXIS II: Deferred. AXIS III: None. AXIS IV: Moderate. AXIS V: Current Global Assessment of Functioning equal to 45. DISCHARGE MEDICATIONS: Olanzapine 10 mg at bedtime. DISCHARGE PLAN: Client to follow up in two weeks with [facility] in [place]. Client has been given addresses and appointment time. Activities and diet: Recommend client refrain from recreational drugs and alcohol while taking psychiatric medications. Recommend he not change medications unless under the supervision of a physician. CONDITION ON DISCHARGE: Good. PROGNOSIS: Guarded.
--- NOTE | 2017-03-04 10:23 | NUR ---
Nursing Discharge Note: Patient cooperative with discharge process. Acknowledges understanding of d/c instructions and has a copy with them upon leaving unit at 1020. Belongings accounted for and with patient. Prescriptions [facility]ed to [email or web address] [address] Patient denies harmful thoughts and hallucinations at this time.
--- NOTE | 2017-03-04 13:52 | NUR ---
[employer] Internship/Counselor S:"When can I leave?" O: Patient denies any SI or HI, no AVH, no anxiety or depression. A:Patient was discharged and has plans to go to [facility] in [place]. Patient stated he is able to purchase his bus fare and was provided with a bus schedule and map. Patient has follow up appt. at [facility] on 03/05/17. Patient was provided with all necessary discharge paperwork.
== END 2017-03-04 10:20 | disposition home or self-care (01) | DRG 885 ==
LOC: MHC 22:10
PROVIDERS: ADMIT Psychiatry & Neurology Psychiatry; ATTEND Psychiatry & Neurology Psychiatry
DX: F29 Unspecified psychosis not due to a substance or known physiological condition (principal); Z59.0 Homelessness

== ENCOUNTER 2017-03-07 10:02 | Emergency (ER) | payer SELFPAY ==
[~2017-03-07] VITALS: Ht 165.1 cm; Wt 78.0 kg
[~2017-03-07 10:02] MED LIST: OLAN10TA19 PO
[2017-03-07 10:05] VITALS: BP 112/73; PULSE 78; RESP 15; O2SAT 100
--- NOTE | 2017-03-07 10:10 | ED.REPORT ---
HPI-Psychiatric Illness Date of Service Mar 07, 2017 ED Provider: Juan Daniel Smalls Patient is a 26 year old male with a hx of depression who presents to the ED with a vague psychiatric complaint of being "mentally unwell". When asked for more information he states that he is not feeling "balanced". He denies suicidal ideation, homicidal ideation, auditory or visual hallucinations, depression, or any other symptoms. He has not been taking his olanzapine. Patient is a very poor historian. He was admitted to the [facility] from 02/19/17 to 03/04/17 and was seen at [facility] in [place] yesterday with the same complaint. Per discharge summary from [facility], "He has delusional belief that living in [place] or [place] will heal him. He has very poor planning, no money and very poor work skills. His mother followed him to [facility] and was trying to support him to come back home but he has continually refused." Nursing Notes Stated Complaint: GENERAL Chief Complaint: Psychiatric Complaint Nursing Notes Reviewed: Yes Allergies: Coded Allergies: No Known Drug Allergies (Verified Allergy, Unknown, 03/07/17) Scheduled Olanzapine (Olanzapine) 10 Mg Tablet 10 MG PO DAILY General Time Seen by MD: 10:09 Chief Complaint Other ("mentally unwell" ) Hx Obtained From: Patient Arrived By: Walk-in Onset Occurred: Onset unknown Symptom Duration: Since onset Severity: Current: No pain currently Severity: Maximum: No pain Immunizations: Unknown Recent Healthcare: Recent hospitalization Risk-Psychiatric Illness Suicide Risk Stratification Suicide Risk Factors - Adult: : Prior psych admission RF Statements: Risk factors reviewed Past Medical History Past Medical History depression Past Surgical History None reported Smoking History Unknown if Ever Smoker Social History From [facility]. Previous psych admissions Ambulatory Status Independent Review of Systems Review of Systems Note: +"mentally unwell" Constitutional: Denies: Chills, Fever Respiratory: Denies: Shortness of breath Cardiovascular: Denies: Chest pain GI: Denies: Abdominal pain Psychiatric: Denies: Depression, Hallucinations, auditory, Hallucinations, visual, Homicidal ideation, Suicidal ideation Complete sys rev & neg: except as marked. Physical Exam Initial Vital Signs Vital Signs (First) Date Time Temp Pulse Resp B/P Pulse Ox O2 Delivery O2 Flow Rate FiO2 03/07/17 10:05 36.9 78 15 112/73 100 Room Air Initial VS: Reviewed, Vital signs normal Head / Eyes: Atraumatic, Normocephalic Neck: Supple, Full range of motion Respiratory: Breath sounds normal, Clear to auscultation, No respiratory distress Cardiovascular: Regular rate & rhythm, Heart sounds normal, Intact distal pulses Abdomen / GI: Soft, Non-tender Skin: Warm, Dry General/Constitutional: Awake, Alert, No acute distress Neurologic: Oriented X3 Psychiatric: Not suicidal, Not homicidal, No hallucinations Abnormal Mood/Affect: Positive: Flat affect Slow to respond Interpretation & Diagnostics Lab Results Interpretation Result Diagram: 03/07/17 1022 03/07/17 1022 Test 03/07/17 10:22 03/07/17 14:15 White Blood Count 7.4th/mm3 (3.8-10.1) Red Blood Count 5.12mil/mm3 (4.40-5.80) Hemoglobin 14.2g/dL (13.8-17.2) Hematocrit 43.1% (41.0-50.0) Mean Corpuscular Volume 84.2fL (81-100) Mean Corpuscular Hemoglobin 27.7pg (27.0-35.0) Mean Corpuscular Hemoglobin Concent 32.9% (32.0-37.0) Red Cell Distribution Width 14.4% (12.3-15.4) Platelet Count 228bil/L (150-400) Neutrophils (%) (Auto) 49.0% (40-74) Lymphocytes (%) (Auto) 42.0% (14-46) Monocytes (%) (Auto) 8.1% (4-12) Eosinophils (%) (Auto) 0.7% (0-5) Basophils (%) (Auto) 0.1% (0-3) Sodium Level 140mEq/L (134-144) Potassium Level 3.9mEq/L (3.5-5.2) Chloride Level 100mEq/L (97-108) Carbon Dioxide Level 26mmol/L (18-29) Blood Urea Nitrogen 13mg/dL (6-20) Creatinine 0.78mg/dL (0.76-1.27) Estimat Glomerular Filtration Rate 130mL/min (>59) Glucose Level 91mg/dL (60-99) Calcium Level 9.4mg/dL (8.5-10.1) Total Bilirubin 0.6mg/dL (0.0-1.2) Aspartate Amino Transf (AST/SGOT) 16U/L (0-50) Alanine Aminotransferase (ALT/SGPT) 16U/L (0-44) Alkaline Phosphatase 72U/L (25-150) Total Protein 7.4g/dL (6.4-8.4) Albumin 4.5g/dL (3.4-5.0) Thyroid Stimulating Hormone (TSH) 0.814uIU/mL (0.450-4.500) Hold Urine Received (Received) Discharge & Departure Shift Change Sign-Out Patient Care Transferred: Yes Discussed Complaint(s): Yes Laboratory Evaluation: Ordered, not yet done Additonal Information: Transfer of care to Dr. Owens at 1500 Impression: Primary Impression: Psychosis Psychosis type: unspecified psychosis type Qualified Code: F29 - Unspecified psychosis not due to a substance or known physiological condition Discharge Condition All VS Reviewed: Yes Condition: Stable Referrals: NOPCP (PCP) Care Transferred to: Dr. Owens Care Transferred at: 15:00 Ghazala Attestation Portions of this note were transcribed by Pancho Chamorro. I, Dr. Smalls personally performed the history, physical exam and medical decision-making; I reviewed and confirmed the accuracy of the information in the transcribed note. Signed by: Ghazala Desai, 03/07/17 Juan Daniel Smalls DO Mar 07, 2017 10:10 PANCHO CHAMORRO Mar 07, 2017 10:22
[2017-03-07 10:38] LABS: BASOPHILS % (AUTO) 0.1 % (0-3); EOSINOPHILS % (AUTO) 0.7 % (0-5); MONOCYTES % (AUTO) 8.1 % (4-12); Mean Corpuscular Hemoglobin 27.7 pg (27.0-35.0); Mean Corpuscular Volume 84.2 fL (81-100); Platelet Count 228 bil/L (150-400)
[2017-03-07 15:00] VITALS: BP 132/68; PULSE 72; RESP 18; O2SAT 99
[2017-03-07 19:37] VITALS: BP 112/72; PULSE 85; RESP 16; O2SAT 99
[2017-03-07 19:38] VITALS: BP 112/72; PULSE 85; RESP 16; O2SAT 99
== END 2017-03-07 19:39 | disposition other institution (70) ==
LOC: SED 10:02
DX: F29 Unspecified psychosis not due to a substance or known physiological condition (principal); F32.9 Major depressive disorder, single episode, unspecified